=== PATIENT | male | born 1960 | race Caucasian/White ===

== ENCOUNTER → 2021-10-15 | Outpatient (CLI) | payer OTHER | LOC: HEART 5 10-14 10:30 | DX: I48.91 Unspecified atrial fibrillation (principal); R00.2 Palpitations ==

== ENCOUNTER → 2022-03-16 | Outpatient (CLI) | payer OTHER | LOC: KOH-I 09:16 | DX: J32.0 Chronic maxillary sinusitis (principal) | CPT/HCPCS: 70486 ==